=== PATIENT | male | born 1960 ===

== ENCOUNTER 2018-12-31 18:34 | Emergency (ER) | payer BC, OTHER ==
[2018-12-31 18:38] VITALS: TEMP 98; O2SAT 98
[2018-12-31] MEDS ORDERED: Tdap Vaccine 0.5 ml Vial (10-64 yrs) IM ONE ×2 (19:01→19:31)
[2018-12-31] MEDS ORDERED: ceFAZolin 1 GM in Sodium Chloride 0.9% 100 ML IVPB ONE (19:01)
--- NOTE | 2018-12-31 19:10 | ED PDOC ---
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 Patient reports localized pain to the area and has bleeding under control upon arrival. Denies other complaints and use of blood thinners. Right hand dominant Tetanus not up to date PMD: none provided Past Medical History Reviewed: Historical Data, Nursing Documentation, Vital Signs Vital Signs: Last Vital Signs Temp 98.0 F 12/31/18 18:35 Pulse 110 H 12/31/18 18:35 Resp 16 12/31/18 18:35 BP 176/89 H 12/31/18 18:35 Pulse Ox 98 12/31/18 18:35 - Medical History PMH: No Chronic Diseases - Surgical History Surgical History: No Surg Hx - Family History Family History: States: Unknown Family Hx - Home Medications Home Medications: Ambulatory Orders Medication Instructions Recorded Cephalexin [cephalexin] 500 mg PO QID #40 cap 12/31/18 - Allergies Allergies/Adverse Reactions: Allergies Allergy/AdvReac Type Severity Reaction Status Date / Time No Known Allergies Allergy Verified 12/31/18 18:40 Review of Systems ROS Statement: Except As Marked, All Systems Reviewed And Found Negative Musculoskeletal: Positive for: Other (left hand index finger injury with localized pain and bleeding under control) Physical Exam - Reviewed Nursing Documentation Reviewed: Yes Vital Signs Reviewed: Yes - Physical Exam Appears: Positive for: No Acute Distress Cardiovascular/Chest: Positive for: Regular Rate, Rhythm Respiratory: Positive for: Normal Breath Sounds. Negative for: Respiratory Distress Extremity: Positive for: Normal ROM (of left hand and all digits), Deformity (amputated distal left 2nd digit with bleeding under control and hemodynamically stable) Neurologic/Psych: Positive for: Alert, Oriented (x3). Negative for: Motor/Sensory Deficits - ECG O2 Sat by Pulse Oximetry: 98 (RA) Pulse Ox Interpretation: Normal Medical Decision Making Medical Decision Making: Time: 1900 Initial Impression: amputated distal digit Initial Plan: --Ancef 1gm in NS 100ml IVPB --Tetanus booster --Left hand XR 2054 2 strips of gel-foam used and bleeding controlled with 2% lido with epi. Patient instructed on further wound care and return parameters discussed. - Scribe Attestation: Documented by Barb Dia, acting as a scribe for Reinaldo Dangelo PA-C. Provider Scribe Attestation: All medical record entries made by the Scribe were at my direction and personally dictated by me. I have reviewed the chart and agree that the record accurately reflects my personal performance of the history, physical exam, medical decision making, and the department course for this patient. I have also personally directed, reviewed, and agree with the discharge instructions and disposition. Disposition - Clinical Impression Clinical Impression: Amputation of finger tip Doctor Will See Patient In The: Office Counseled Patient/Family Regarding: Diagnosis, Need For Followup, Rx Given - Disposition [facility]: [facility] [Outside] Disposition: Routine/Home Disposition Time: 20:58 Condition: STABLE Prescriptions: Cephalexin [cephalexin] 500 mg PO QID #40 cap Instructions: Amputation of the Finger or Fingertip, Amputation of the Finger or Fingertip (DC) Forms: [facility] (Polish)
[2018-12-31] MEDS ORDERED: Lidocaine 1% Inj (20ml) ONE (19:31)
[2018-12-31] MEDS ORDERED: Absorbable Gelatin Sponge Size 12-7 ONE (19:32)
[2018-12-31] MEDS ORDERED: Lidocaine 1% w Epi 1:100,000 Inj ONE (19:32)
[2018-12-31 21:16] VITALS: BP 157/76; PULSE 78; RESP 15
--- NOTE | 2019-01-01 08:17 | RAD ---
PROCEDURE: Left Hand Radiographs. HISTORY: r/o osteo involvemnet COMPARISON: None. FINDINGS: BONES: No acute fracture or destructive bony lesion identified. JOINTS: Normal. No osteoarthritic changes. SOFT TISSUES: Perpendicular (relative to long axis of index finger) distal soft tissue margin at the soft tissues related to the tuft of the left index finger distal phalanx suggests amputation of limited tissue here. Remaining soft tissues left hand appear unremarkable as imaged. OTHER FINDINGS: None. IMPRESSION: No suspicious bony findings to suggest fracture or erosion particularly at the tuft of the distal phalanx left index finger. No overt radiographic sign of osteomyelitis here. Amputation of the distal most soft tissues of the left index finger is suggested distal to the tuft as discussed above.
== END 2018-12-31 21:16 | disposition home or self-care (01) ==
LOC: H.ER 18:34
DX: S68.121A Partial traumatic metacarpophalangeal amputation of left index finger, initial encounter (principal); W26.8XXA Contact with other sharp object(s), not elsewhere classified, initial encounter; Y99.0 Civilian activity done for income or pay
CPT/HCPCS: 73130; 90471; 90715; 96374; 99283; J0690; J1885